=== PATIENT | female | born 1975 | race Hispanic/Latino ===

== ENCOUNTER 2018-04-29 15:30 | Observation (INO) | payer BC ==
[~2018-04-29] VITALS: Ht 154.9 cm; Wt 134.4 kg
[2018-04-29 15:35] VITALS: BP 136/68
[2018-04-29 15:50] LABS: BASOPHILS % (AUTO) 0.6 % (0.0-5.0); EOSINOPHILS % (AUTO) 2.6 % (0.0-8.0); HEMATOCRIT 39.3 % (36-48); MEAN CORPUSCULAR HEMOGLOBIN 25.8 pg (27.0-33.0); MEAN CORPUSCULAR HGB CONC 31.5 g/dL (32.0-36.0); MEAN CORPUSCULAR VOLUME 81.9 fL (79-99); MONOCYTES % (AUTO) 5.7 % (3.0-13.0); NEUTROPHILS % (AUTO) 71.1 % (40.0-77.0); PLATELET COUNT (AUTO) 213 K/uL (130-400); RED BLOOD CELL COUNT(AUTO) 4.79 MIL/uL (4.00-5.50); RED CELL DISTRIBUTION WIDTH 19.4 % (11.0-15.5); WHITE BLOOD COUNT (AUTO) 10.2 K/uL (4.8-10.8)
[2018-04-29] MEDS ORDERED: LISI40TA4 PO (17:14)
[2018-04-29] MEDS ORDERED: METOPROLOL PO (17:14)
[2018-04-30 13:45] LABS: CREATININE 0.8 mg/dL (0.5-1.5)
[2018-05-01] VITALS (24 sets, daily range): BP systolic 122–149; BP diastolic 65–96
[2018-05-01] MEDS ORDERED: CALDOLOR 800MG+NS 250ML 250 ML IV ONE (09:47)
[2018-05-01] MEDS ORDERED: LACTATED RINGERS 1000ML 1,000 ML IV ONE (09:51)
[2018-05-01] MEDS: CEFAZOLIN SODIUM 1 GM VIAL ONE ×2 (10:07→11:18)
[2018-05-01] MEDS ORDERED: SUCCINYLCHOLINE 200MG/10ML SYR ONE (10:48)
[2018-05-01] MEDS ORDERED: ONDANSETRON HCL 4 MG/2 ML VIAL ONE (10:48)
[2018-05-01] MEDS ORDERED: LIDOCAINE PF 2% 5ML ABBOJECT ONE (10:48)
[2018-05-01] MEDS ORDERED: GLYCOPYRROLATE 1 MG/5 ML SYRINGE ONE (10:49)
[2018-05-01] MEDS ORDERED: FENTANYL CITRATE PF 50 MCG/1 ML 2ML VIAL ONE (10:49)
[2018-05-01] MEDS ORDERED: PROPOFOL 10 MG/ML 20ML VIAL IV ONE (10:49)
[2018-05-01] MEDS ORDERED: NEOSTIGMINE 5MG/5ML SYR IV ONE (10:49)
[2018-05-01] MEDS ORDERED: DEXAMETHASONE SOD PHOSPHATE 10MG/ML 1ML VIAL ONE (10:49)
[2018-05-01] MEDS ORDERED: ROCURONIUM 10MG/1ML SYR 10 MG/ML ML ONE (10:49)
[2018-05-01] MEDS ORDERED: MIDAZOLAM HCL 1 MG/ML 2ML VIAL ONE (10:49)
[2018-05-01] MEDS ORDERED: FENTANYL CITRATE PF 50 MCG/1 ML 5ML AMP IV ONE (11:49)
[2018-05-01] MEDS ORDERED: MEPERIDINE-PF 25 MG/ML SYG ONE ×2 (13:27→13:41)
[2018-05-01] MEDS ORDERED: DEXTROSE 5 %-0.45 % NACL 1,000 ML IV PRN (13:36)
[2018-05-01] MEDS ORDERED: MEPERIDINE-PF 75 MG/ML SYG IM PRN (13:45)
[2018-05-01] MEDS ORDERED: ONDANSETRON HCL 4 MG/2 ML VIAL IVP PRN (13:45)
[2018-05-01] MEDS ORDERED: DIPH,PERTUSS(ACELL),TET VAC/PF 0.5 ML VIAL IM SCH (13:45)
[2018-05-01] MEDS ORDERED: SIMETHICONE 80 MG TAB.CHEW PO PRN (13:45)
[2018-05-01] MEDS ORDERED: PROMETHAZINE HCL 25 MG/ML 1ML AMPULE IM PRN ×2 (13:45)
[2018-05-01] MEDS ORDERED: ACETAMINOPHEN-CODEINE 300/30MG TAB PO PRN (13:45)
[2018-05-01] MEDS ORDERED: HYDROCODONE/ACETAMINOPHEN 5/325 MG TAB PO PRN ×2 (13:45)
[2018-05-01] MEDS ORDERED: BISACODYL 10 MG SUPP.RECT RC PRN (13:45)
[2018-05-01] MEDS: METOPROLOL TARTRATE 25 MG TAB PO SCH (20:42)
[2018-05-01] MEDS: DOCUSATE SODIUM 100 MG CAP PO PRN (20:42)
[2018-05-01] MEDS: CALDOLOR 800MG+NS 250ML 250 ML IVPB SCH (21:28)
[2018-05-02 03:05] VITALS: BP 121/67
[2018-05-02] MEDS: CALDOLOR 800MG+NS 250ML 250 ML IVPB SCH (05:23)
[2018-05-02 06:45] LABS: HEMATOCRIT 35.8 % (36-48); MEAN CORPUSCULAR HEMOGLOBIN 26.7 pg (27.0-33.0); MEAN CORPUSCULAR HGB CONC 32.3 g/dL (32.0-36.0); MEAN CORPUSCULAR VOLUME 82.4 fL (79-99); PLATELET COUNT (AUTO) 236 K/uL (130-400); RED BLOOD CELL COUNT(AUTO) 4.35 MIL/uL (4.00-5.50); RED CELL DISTRIBUTION WIDTH 18.8 % (11.0-15.5); WHITE BLOOD COUNT (AUTO) 12.1 K/uL (4.8-10.8)
[2018-05-02 07:50] VITALS: BP 126/76
[2018-05-02] MEDS ORDERED: SIMETHICONE 80 MG TAB.CHEW PO PRN (08:15)
[2018-05-02] MEDS: DOCUSATE SODIUM 100 MG CAP PO PRN (08:31)
[2018-05-02] MEDS ORDERED: LISINOPRIL 40 MG TABLET PO SCH (09:00)
[2018-05-02] MEDS: METOPROLOL TARTRATE 25 MG TAB PO SCH (09:00)
[2018-05-02] MEDS ORDERED: IBUPROFEN 800 MG TAB PO SCH (13:45)
== END 2018-05-02 10:40 | disposition home or self-care (01) ==
LOC: EDSTATUS 15:30 → DAHIP 05-01 08:49 → WSH 05-01 14:30
PROVIDERS: ADMIT Obstetrics & Gynecology; ATTEND Obstetrics & Gynecology
DX: N92.0 Excessive and frequent menstruation with regular cycle (principal); R10.2 Pelvic and perineal pain; I10 Essential (primary) hypertension; Z86.718 Personal history of other venous thrombosis and embolism; Z83.3 Family history of diabetes mellitus; Z82.49 Family history of ischemic heart disease and other diseases of the circulatory system; Z79.899 Other long term (current) drug therapy
CPT/HCPCS: 36415 ×2; 58260; 82565; 84702; 85025; 85027; 86850; 86900; 86901; 88307; 96365; 96366; 96372; A4351; A4510; A4600; A4649; A5113; G0378 ×27; J0330; J0690; J1100; J1741 ×3; J2001; J2175 ×3; J2250; J2405; J2550; J2704; J2710; J3010 ×2; J3490; J7030; J7120; 90715

== ENCOUNTER 2024-09-14 18:53 | Emergency (ER) | payer BC ==
[~2024-09-14] VITALS: Ht 152.4 cm; Wt 111.6 kg
[~2024-09-14 18:53] MED LIST: LISI40TA9 PO; METOPROLOL PO
--- NOTE | 2024-09-14 19:58 | ERN ---
ED Note History of Present Illness Stated Complaint: HEADACHES Chief Complaint: Headache Time Seen by MD: 18:54 Time Seen by Midlevel: 18:54 Dictation: The patient is a 49-year-old female with a history of hypertension who presents to the emergency department with complaints of right side headache that radiates to her right occipital area onset 1.5 weeks ago. Patient denies any traumas or falls. Denies any dizziness or visual changes. Denies any use of blood thinners. Reports occasional nausea but no vomiting. Denies fevers. Patient reports she occasionally gets headaches but they never lasted this long. Allergies: Uncoded Allergies: DEER MEAT (Allergy, Unknown, LARGE HIVES, 04/29/18) VENISON (Allergy, Unknown, LARGE HIVES, 04/29/18) Home Meds Active Scripts Aspirin/Acetaminophen/Caffeine (Excedrin Extra Strength Caplet) 250 Mg-250 Mg-65 Mg Tablet, 2 EACH PO DAILY PRN for Headache for 15 Days, #30 TAB Prov:LELA ALICEA NON LINEAR EDITOR 09/14/24 Reported Medications [Metoprolol] No Conflict Check, 25 MG PO BID 04/29/18 Lisinopril (Lisinopril) 40 Mg Tablet, 40 MG PO DAILY, TAB 04/29/18 Past Medical History Past Medical History: GERD, Hypertension Surgical History: Hysterectomy Family History: Negative History: Not Applicable RN Note Reviewed/Agreed w/PFSH: Yes Review of System Dictation Constitutional: Negative for fever,chills, and weight loss Eyes: Negative for injury, pain,redness, and discharge ENT: Negative for injury,pain or swelling Cardiovascular: Negative for chest pain, palpitations, and edema Respiratory: Negative for shortness of breath, cough, and wheezing, Abdomen/GI: Negative for abdominal pain, vomiting, diarrhea, and constipation positive for nausea Back: Negative for injury and pain : Negative for injury, bleeding and discharge MS/Extremity: Negative for injury and deformity Skin: Negative for rash, and discoloration Neuro: Negative for weakness, numbness, tingling, and seizure positive for headache Psych: Negative for suicide ideation, homicidal ideation, and hallucinations Initial Vital Sign VS Vital Signs Date Time Temp Pulse Resp B/P (MAP) Pulse Ox O2 Delivery O2 Flow Rate FiO2 09/14/24 18:53 98.1 71 16 145/93 98 Room Air 0 09/14/24 19:27 21 Physical Exam Dictation Vital Signs reviewed General Appearance: Alert, oriented x 3, no acute distress, well developed, nourished. Head and Face: non-traumatic. Eyes: PERRL, pink conjunctivas, eyelid no trauma, anterior chamber with arcus senilis. Ears: Pinnas intact and no signs of trauma or erythema ear canals clear and no discharge TM no erythema Nose: No discharge, no bleeding. Oropharynx: Mouth normal, tongue pink. pharynx clear,no erythema, tonsils no exudates, no abscesses noted, mucous membrane moist Neck: Supple, non-tender, no thyromegaly, no masses, no JVD, no bruits Breast:Deferred Chest:No tenderness, no crepitus, no paradoxical movement, no retractions Lungs:Clear, well-ventilated, symmetric, no rales, no wheezing, no rhonchi, no stridor, good breath sounds bilaterally Heart: Regular rate, regular rhythm, no murmur, no gallops Vascular: no peripheral edema, Abdomen: Soft, positive bowel sounds, nondistended, no guarding, nontender, no rebound, no masses no hepatomegaly, no splenomegaly, no Starks's sign, no hernias. Rectal: Deferred Genital: Deferred Neurological: Normal speech, motor function intact, sensory function intact , upper extremities equal in strength, lower extremities equal in strength Musculoskeletal: Neck nontender, full range of motion, back nontender, full range of motion, Extremities: nontender, full range of motion Skin: Color pink, dry, no turgor, no rash, no lacerations, no abrasions, no contusions. Lymphatic: Deferred Results (Laboratory/Radiology) Laboratory/Radiology Laboratory Tests Test 09/14/24 20:05 White Blood Count 9.2 K/uL (4.8-10.8) Red Blood Count 4.57 MIL/uL (4.00-5.50) Hemoglobin 13.9 g/dL (12.0-16.0) Hematocrit 42.2 % (36-48) Mean Corpuscular Volume 92.3 fL (79-99) Mean Corpuscular Hemoglobin 30.4 pg (27.0-33.0) Mean Corpuscular Hemoglobin Concent 32.9 g/dL (32.0-36.0) Red Cell Distribution Width 12.9 % (11.0-15.5) Platelet Count 223 K/uL (130-400) Mean Platelet Volume 11.6 fL (7.5-10.5) H Immature Granulocyte % (Auto) 0.2 % (0-1) Neutrophils (%) (Auto) 61.0 % (40.0-77.0) Lymphocytes (%) (Auto) 30.3 % (21.0-51.0) Monocytes (%) (Auto) 6.6 % (3.0-13.0) Eosinophils (%) (Auto) 1.6 % (0.0-8.0) Basophils (%) (Auto) 0.3 % (0.0-5.0) Neutrophils # (Auto) 5.6 K/uL (1.8-7.7) Lymphocytes # (Auto) 2.8 K/uL (1.0-4.8) Monocytes # (Auto) 0.6 K/uL (0.1-1.0) Eosinophils # (Auto) 0.15 K/uL (0.00-0.70) Basophils # (Auto) 0.03 K/uL (0.00-0.20) Absolute Immature Granulocyte (auto 0.02 K/uL (0-1) Nucleated Red Blood Cells 0.0 % (0.0-0.19) Sodium Level 142 mmol/L (136-145) Potassium Level 4.0 mmol/L (3.5-5.1) Chloride Level 105 mmol/L (101-111) Carbon Dioxide Level 29 mmol/L (21-32) Blood Urea Nitrogen 18 mg/dL (7-18) Creatinine 1.1 mg/dL (0.5-1.0) H Glomerular Filtration Rate Calc 62 mL/min (>90) Random Glucose 94 mg/dL (70-105) Total Calcium 8.9 mg/dL (8.5-10.1) REASON: rigth side headache ORDERING PHYSICIAN: ELLA ALICEA PROCEDURE: HEAD WO - CT HEAD/BRAIN W/O CONTRAST CT HEAD/BRAIN W/O CONTRAST HISTORY: Right-sided headaches COMPARISON: None TECHNIQUE: Multiple sequential axial images of the head were obtained from the base of the skull through vertex. Patient was not given contrast through intravenous route. FINDINGS: The ventricles and extraventricular CSF spaces are nondilated for patient's age. There is no midline shift, mass effect or herniation. No acute intracranial bleed is seen. Visualized portion of the paranasal sinuses are grossly within normal limits. IMPRESSION: 1. No acute intracranial bleed is seen. CT was performed with one or more following dose reduction techniques: automated exposure control, adjustment of the mA and kv according to patient's size, or use of a iterative reconstruction technique. Labs Reviewed?: Yes ED Course ED Course Orders Procedure Category Date Status Time Cbc With Differential LAB 09/14/24 Complete 19:01 Basic Metabolic Panel LAB 09/14/24 Complete 19:01 0.9%Nacl 1000ml (Ns PHA 09/14/24 Complete 1000ml) 19:30 Metoclopramide 10 PHA 09/14/24 Complete Mg/2 Ml Vial (Reglan 1 19:30 Diphenhydramine Hcl PHA 09/14/24 Complete (Benadryl Inj) 19:30 Acetaminophen 500mg PHA 09/14/24 Complete Tab (Tylenol 500mg T 19:30 Ct Head/Brain W/O CT 09/14/24 Resulted Contrast 19:01 Current Medications Medications (Trade) Dose Ordered Sig/Jodie Route PRN Reason Start Time Stop Time Status Last Admin Dose Admin Acetaminophen (TYLenol 500MG TAB) 1,000 mg ONCE ONCE PO 09/14/24 19:30 09/14/24 19:31 DC 09/14/24 20:07 Diphenhydramine HCl (BENAdryl INJ) 25 mg ONCE ONCE IV 09/14/24 19:30 09/14/24 19:31 DC 09/14/24 20:07 Metoclopramide HCl (regLAN 10MG IV) 10 mg ONCE ONCE IVP 09/14/24 19:30 09/14/24 19:31 DC 09/14/24 20:07 Sodium Chloride 1,000 ml @ 0 mls/hr ONCE ONCE IV 09/14/24 19:30 09/14/24 19:31 DC 09/14/24 20:07 Vital Signs Date Time Temp Pulse Resp B/P (MAP) Pulse Ox O2 Delivery O2 Flow Rate FiO2 09/14/24 20:58 98.2 66 16 145/82 98 Room Air* 0 21 09/14/24 19:27 98.2 70 16 145/90 98 Room Air* 0 21 09/14/24 18:53 98.1 71 16 145/93 98 Room Air 0 Medical Decision Making MDM The patient is a 49-year-old female with a history of hypertension who presents to the emergency department with complaints of right side headache that radiates to her right occipital area onset 1.5 weeks ago. Patient denies any traumas or falls. Denies any dizziness or visual changes. Denies any use of blood thinners. Reports occasional nausea but no vomiting. Denies fevers. Patient reports she occasionally gets headaches but they never lasted this long. CBC showed no leukocytosis, no anemia, chemistry showed creatinine of 1.1, no electrolyte imbalance. Patient received a L of IV fluids in ER. CT head showed no acute pathology. Patient reports improving in pain. Continues neur ologically intact. Patient will be discharged to follow up with PCP. Differential diagnosis: Tension headache, migraine headache, intracerebral hemorrhage, dehydration, electrolyte imbalance Need for hospitalization: Patient does not meet criteria for hospitalization. There are no social concerns with this patient. DX & DISP Disposition: Discharge Departure Impression: Primary Impression: Migraine headache Condition: Stable Scripts Aspirin/Acetaminophen/Caffeine (Excedrin Extra Strength Caplet) 250 Mg-250 Mg-65 Mg Tablet 2 EACH PO DAILY PRN for Headache for 15 Days, #30 TAB Prov: ELLA ALICEA 09/14/24 Additional Instructions: Please follow up with your primary doctor in 1-2 days. If symptoms worsen please return to ER. Take medications as prescribed. FOLLOW-UP WITH PRIMARY CARE PROVIDER IN 1 TO 2 DAYS. TAKE MEDICATIONS DIRECTED HERE IN THE EMERGENCY ROOM. OKAY TO CONTINUE HOME MEDICATIONS UNLESS OTHERWISE DISCUSSED DURING YOUR VISIT IN THE EMERGENCY ROOM TODAY. RETURN TO YOUR NEAREST EMERGENCY ROOM IF SYMPTOMS WORSEN OR IF THERE IS NO IMPROVEMENT. CALL 911 IF YOU NEED IMMEDIATE ASSISTANCE. TAKE TYLENOL OR MOTRIN [id number] NEEDED AND IF NO CONTRAINDICATIONS ARE PRESENT. INCREASE ORAL HYDRATION. A WOUND CULTURE OR URINE CULTURE WAS ORDERED HERE IN THE EMERGENCY ROOM DEPARTMENT PLEASE FOLLOW-UP WITH PRIMARY CARE PROVIDER AND ADVISE THEM TO GET REPEAT PORTS FROM OUR FACILITY. IF YOU HAD ANY ALIA WRAP/SPLINTS THAT WERE APPLIED HERE, PLEASE DO NOT REMOVE THEM UNTIL YOU SEE YOUR PRIMARY CARE OR SPECIALTY. Referrals: ELIZA SIERRA MD (PCP) Time of Disposition: 20:55 I have reviewed the case, and I agree with, Diagnosis and Plan ELLA ALICEA Sep 14, 2024 19:58
[2024-09-14] MEDS: DiphenhydrAMINE HCL 50 MG/ML VIAL IV ONE (20:07)
[2024-09-14] MEDS: 0.9%NACL 1000ML 1,000 ML IV ONE (20:07)
[2024-09-14] MEDS: metoCLOPRAmide 10 MG/2 ML VIAL IVP ONE (20:07)
[2024-09-14] MEDS: acetaMINOPHEN 500 MG TABLET PO ONE (20:07)
--- NOTE | 2024-09-14 20:30 | HMCIMG ---
CT HEAD/BRAIN W/O CONTRAST HISTORY: Right-sided headaches COMPARISON: None TECHNIQUE: Multiple sequential axial images of the head were obtained from the base of the skull through vertex. Patient was not given contrast through intravenous route. FINDINGS: The ventricles and extraventricular CSF spaces are nondilated for patient's age. There is no midline shift, mass effect or herniation. No acute intracranial bleed is seen. Visualized portion of the paranasal sinuses are grossly within normal limits. IMPRESSION: 1. No acute intracranial bleed is seen. CT was performed with one or more following dose reduction techniques: automated exposure control, adjustment of the mA and kv according to patient's size, or use of a iterative reconstruction technique.
[2024-09-14 20:31] LABS: BASOPHILS # (AUTO) 0.03 K/uL (0.00-0.20); BASOPHILS % (AUTO) 0.3 % (0.0-5.0); EOSINOPHILS # (AUTO) 0.15 K/uL (0.00-0.70); EOSINOPHILS % (AUTO) 1.6 % (0.0-8.0); HEMATOCRIT 42.2 % (36-48); IMMATURE GRANULOCYTE ABSOLUTE 0.02 K/uL (0-1); LYMPHOCYTES # (AUTO) 2.8 K/uL (1.0-4.8); LYMPHOCYTES % (AUTO) 30.3 % (21.0-51.0); MEAN CORPUSCULAR HEMOGLOBIN 30.4 pg (27.0-33.0); MEAN CORPUSCULAR HGB CONC 32.9 g/dL (32.0-36.0); MEAN CORPUSCULAR VOLUME 92.3 fL (79-99); MONOCYTES # (AUTO) 0.6 K/uL (0.1-1.0); MONOCYTES % (AUTO) 6.6 % (3.0-13.0); NEUTROPHILS # (AUTO) 5.6 K/uL (1.8-7.7); PLATELET COUNT (AUTO) 223 K/uL (130-400); RED BLOOD CELL COUNT(AUTO) 4.57 MIL/uL (4.00-5.50); RED CELL DISTRIBUTION WIDTH 12.9 % (11.0-15.5); WHITE BLOOD COUNT (AUTO) 9.2 K/uL (4.8-10.8)
[2024-09-14 20:38] LABS: CREATININE 1.1 mg/dL (0.5-1.0)
[2024-09-14] MEDS ORDERED: ASPI-1190 PO (20:57)
[2024-09-14 20:58] VITALS: BP 145/82; PULSE 66; RESP 16; TEMP 98.3; O2SAT 98
== END 2024-09-14 21:11 | disposition home or self-care (01) ==
LOC: EDH 18:53
DX: G43.909 Migraine, unspecified, not intractable, without status migrainosus (principal); I10 Essential (primary) hypertension; Z79.899 Other long term (current) drug therapy; Z90.710 Acquired absence of both cervix and uterus
CPT/HCPCS: 99284; 96374; 70450; 96375; 80048; 85025; 36415; J1200; J7030; J2765